=== PATIENT | male | born 1985 | race Two or more races ===

== ENCOUNTER 2022-03-09 15:58 | Emergency (ER) | payer OTHER ==
[~2022-03-09] VITALS: Ht 172.7 cm; Wt 102.5 kg
[2022-03-09] MEDS ORDERED: MONTELUKAST SOD10 MG (16:21)
[2022-03-09] MEDS ORDERED: CANDESARTAN-HC1 EAC1 (16:21)
[2022-03-09] MEDS ORDERED: NIFEDIPINE ER30 M1 (16:22)
[2022-03-09] MEDS ORDERED: PROVENTIL HFA6.7 GM (16:22)
== END 2022-03-09 19:40 | disposition home or self-care (01) ==
LOC: ER 15:58
DX: N50.811 Right testicular pain (principal)